=== PATIENT | female | born 1970 | race Caucasian/White ===

== ENCOUNTER 2017-05-01 06:38 | Day surgery (SDC) | payer BC ==
[~2017-05-01] VITALS: Ht 167.6 cm; Wt 81.2 kg
[~2017-05-01 06:38] MED LIST: ATIVAN0.5 MG PO; IBUPROFEN200 M1 PO; LASIX20 MG PO; NORVASC2.5 MG PO; PRILOSEC OTC20 MG PO; TOPROL XL25 MG PO; TYLENOL EXTRA500 MG PO
[2017-05-01 07:30] VITALS: BP 144/86
[2017-05-01 08:06] LABS: INTER. NORMALIZED RATIO 1.1; PROTHROMBIN TIME 13.1 SEC (10.2-12.9)
[2017-05-01 08:09] LABS: PTT 31.2 SEC (25-37)
[2017-05-01 11:55] VITALS: BP 126/61
[2017-05-01 15:40] VITALS: BP 136/99
[2017-05-01 16:23] LABS: HEMATOCRIT 39.8 % (36.0-46.0); MCH 30.9 PG (29.0-34.0); MCHC 33.9 G/DL (30.0-36.0); MCV 91.1 FL (83-99); MEAN PLAT.VOLUME 9.6 uM^3 (9.5-12.4); PLATELET COUNT 200 K/uL (156-360); RBC DIS.WIDTH-CV 12.3 % (11.8-14.6); RBC DIS.WIDTH-SD 41.1 % (39-53); RED BLOOD COUNT 4.37 M/uL (3.80-5.20); WHITE BLOOD COUNT 11.1 K/uL (4.1-10.2)
[2017-05-01 16:46] LABS: ANION GAP 8 MEQ/L (2-14); CHLORIDE 104 MEQ/L (99-109); GFR ESTIMATE (CALCULATED) > 59 mL/min/; GLUCOSE 206 mg/dL (70-99); POTASSIUM 3.7 MEQ/L (3.7-5.4); SAMPLE HEMOLYSIS CHECK 0; SAMPLE ICTERIC CHECK 0; SAMPLE LIPEMIA CHECK 0; SODIUM 135 MEQ/L (136-147); UREA NITROGEN (BUN) 9 mg/dL (9-23)
[2017-05-01 18:27] VITALS: BP 139/69
[2017-05-02 00:20] VITALS: BP 142/71
[2017-05-02 03:42] VITALS: BP 143/68
[2017-05-02 07:27] LABS: HEMATOCRIT 37.3 % (36.0-46.0); MCH 29.8 PG (29.0-34.0); MCV 90.3 FL (83-99); MEAN PLAT.VOLUME 9.6 uM^3 (9.5-12.4); PLATELET COUNT 205 K/uL (156-360); RBC DIS.WIDTH-CV 12.5 % (11.8-14.6); RBC DIS.WIDTH-SD 41.3 % (39-53); RED BLOOD COUNT 4.13 M/uL (3.80-5.20); WHITE BLOOD COUNT 14.3 K/uL (4.1-10.2)
[2017-05-02 07:52] LABS: ANION GAP 9 MEQ/L (2-14); CHLORIDE 107 MEQ/L (99-109); GFR ESTIMATE (CALCULATED) > 59 mL/min/; GLUCOSE 171 mg/dL (70-99); POTASSIUM 3.8 MEQ/L (3.7-5.4); SAMPLE HEMOLYSIS CHECK 0; SAMPLE ICTERIC CHECK 0; SAMPLE LIPEMIA CHECK 0; SODIUM 141 MEQ/L (136-147); UREA NITROGEN (BUN) 7 mg/dL (9-23)
[2017-05-02 08:33] VITALS: BP 135/72
== END 2017-05-02 09:57 | disposition home or self-care (01) ==
LOC: SDC 06:38 → 2EAST 09:33 → 2SOUTH 09:33 → SDC 09:35 → ENRESERV 10:14 → SDC 11:03 → 2EAST 11:50
PROVIDERS: Obstetrics & Gynecology Gynecologic Oncology
DX: N81.4 Uterovaginal prolapse, unspecified (principal); N87.0 Mild cervical dysplasia; Z85.3 Personal history of malignant neoplasm of breast; I10 Essential (primary) hypertension; K21.9 Gastro-esophageal reflux disease without esophagitis; F41.9 Anxiety disorder, unspecified; Z80.3 Family history of malignant neoplasm of breast
CPT/HCPCS: 80048; 84702; 85027; 85610; 85730; 88307; G0378; J0131; J0171; J0330; J0690; J1100; J1170; J1885; J2250; J2405; J2550; J2710; J3010